=== PATIENT | female | born 1960 | race Asian ===

== ENCOUNTER 2024-11-23 11:05 | Emergency (ER) | payer OTHER, SELFPAY ==
[2024-11-23 11:22] VITALS: BP 163/86
[2024-11-23 11:42] LABS: Hematocrit 45.0 % (37.0-47.0); Hemoglobin 14.8 g/dL (12.0-16.0); Mean Corp Hgb Conc. 32.9 g/dL (33.0-37.0); Mean Corpuscular Volume 94.1 fL (81.0-99.0); Nucleated Red Blood Cells % 0 %; Platelet Count 316 10^3/uL (130-400); Red Cell Dist. Width 12.1 % (11.5-14.5)
[2024-11-23 12:07] LABS: ALT (SGPT) 45 U/L (0-35); AST (SGOT) 34 U/L (14-36); Albumin 4.6 g/dl (3.5-5.0); Alkaline Phosphatase 59 U/L (38-126); Blood Urea Nitrogen 16 mg/dl (7-17); Calcium 9.4 mg/dl (8.4-10.2); Carbon Dioxide 30 mmol/L (22-30); Chloride 106 mmol/L (98-107); Glucose 142 mg/dl (70-99); Potassium 4.2 mmol/L (3.5-5.1); Sodium 141 mmol/L (135-145); Total Protein 7.6 g/dl (6.3-8.2); eGFR > 60.00
[2024-11-23 12:16] LABS: Troponin I < 0.012 ng/ml
--- NOTE | 2024-11-23 15:00 | ED.GENMED ---
History of Present Illness
General
Chief Complaint: Cardiac Symptoms
Source: patient
Exam Limitations: none
Time Seen by Provider: 11/23/24 14:44
History of Present Illness
History of Present Illness:
64-year-old female with history of hyperlipidemia and diabetes presents complaining of chest pain onset last evening. The pain was to the lower left chest wall. There was no nausea or diaphoresis. No vomiting. The pain has since resolved. She
saw her family doctor today who did an EKG and said come to the emergency room. Currently she has no pain. No recent travel or surgery. No leg swelling or calf pain. She does not smoke. No other complaints at this time
Past History
Past History
ED Past Medical History: Other (endometriosis)
ED Past Surgical History: Gynecological (Endometriosis)
Social History
Tobacco: Non-smoker
Alcohol: Occasional
Personal:
Living: with family
Phy Exam
Physical Exam
Physical Exam:
General: Well-appearing female no acute respiratory distress
HEENT: Normocephalic atraumatic
Heart: Regular rate and rhythm
Lungs: Clear no wheeze abdomen is soft nontender nondistended extremities: No cyanosis or edema
Skin: Warm no rash
Course
Orders/Labs/Results
Orders:
Orders
11/23/24 11:07
ECG [Electrocardiogram (*1)] Urgent
Reason for Study: Chest Pain
EKG- Treatment ONCE
11/23/24 11:24
Chest [CR Chest - 2 Views ] Urgent
Comment:
Reason For Exam: chest pain
11/23/24 11:29
Complete Blood Count/With Diff Urgent
Comprehensive Metabolic Panel Urgent
Lipase Urgent
Comment: ADD ON
Troponin I Urgent
11/23/24 14:58
EKG [Electrocardiogram (*1)] Urgent
Reason for Study: Tachycardia
EKG- Treatment ONCE
11/23/24 15:03
Troponin I Urgent
11/23/24 15:04
Add On- LAB Urgent
Tests Added?: lipase
Abnormal Lab Results
11/23/24
11:29
MCHC 32.9 L g/dL
(33.0-37.0)
Glucose 142 H mg/dl
(70-99)
ALT 45 H U/L
(0-35)
11/23/24 11:29
11/23/24 11:29
Vital Signs
Initial and Last Documented VS:
Initial Vital Signs
Temp Pulse Resp BP Pulse Ox
98.4 F 81 18 163/86 99
11/23/24 11:22 11/23/24 11:22 11/23/24 11:22 11/23/24 11:22 11/23/24 11:22
Last Documented Vital Signs
Temp Pulse Resp BP Pulse Ox
98.4 F 79 11 149/75 99
11/23/24 11:22 11/23/24 15:30 11/23/24 15:30 11/23/24 15:07 11/23/24 15:30
MDM/Problems Addressed
Differential Diagnosis Includes:
Chest pain. Consider ACS versus pneumonia versus reflux. Symptoms have since resolved. Do not suspect dissection or PE.
EKG shows sinus rhythm with right bundle branch block without ischemic changes otherwise. Initial troponin undetectable. Repeat troponin is pending. Chest x-ray is clear.
*Pulse Oximetry
SaO2: 99
Oxygen Mode of Delivery: Room air
Patient hypoxic: no
*Critical Care Note
Total Time (30-74mins, 75-104mins- exclusive of procedures): Not Applicable
Update Note
Update Note:
Initial and repeat troponin both undetectable. Lipase normal. Patient still asymptomatic. Atypical chest discomfort. No signs of ACS PE or dissection on today's workup. Will discharge home with follow
ED Attending Note
-
Portions of this chart may have been created with voice recognition software.� Occasional wrong word or��sound alike� substitutions may have occurred due to the inherent limitations of voice recognition software.
Discharge Plan
Departure
Patient Disposition: Home (Routine Discharge)
Date of Disposition: 11/23/24
Time of Disposition: 16:01
Patient with high blood pressure during this ER visit?: No
Discharge Problem:
Chest pain
Instructions: Chest Pain CBC Follow Up
Prescriptions:
No Action
ginkgo biloba 40 MG capsule
40 mg PO DAILY
red yeast rice 600 MG capsule
600 mg PO DAILY
cholecalciferol (vitamin D3) 1,000 UNITS tablet
1,000 units PO DAILY
ibuprofen-diphenhydramine cit [Advil PM] 1 TAB tablet
1 tab PO HSPRN PRN (Reason: sleep)
omega 5-jte-ver-fish oil [Sigurd-3] 1 EACH capsule,delayed release(DR/EC)
1 ea PO DAILY
Natural Care Ring Stop
1 tab PO DAILY
Sucontral D
1 tab PO DAILY
Activity Restrictions/Additional Instructions:
Please return here for any worsening symptoms otherwise follow-up with your doctor or cardiology
Interventions
Interventions:
*Risk Screen - Suicide Last Done: 11/23/24 11:22
*General Assessment Last Done: 11/23/24 11:22
*Neglect/Abuse Screening Last Done: 11/23/24 11:22
*ED- Fall Risk Assessment Last Done: 11/23/24 15:42
*ED COVID-19 Vaccine History Last Done: 11/23/24 15:42
ED- Pulmonary Assessment Last Done: 11/23/24 15:43
ED- Cardiac Assessment Last Done: 11/23/24 15:43
Discharge Date and Time
Print Language: YORUBA
[2024-11-23 15:07] VITALS: BP 149/75
[2024-11-23 15:36] LABS: Troponin I < 0.012 ng/ml
[2024-11-23 15:42] VITALS: BMI 24.7
[2024-11-23 15:42] LABS: Lipase 132 U/L (23-300)
== END 2024-11-23 16:18 | disposition home or self-care (01) ==
LOC: EMR 11:05
PROVIDERS: Physician Assistant; Student in an Organized Health Care Education/Training Program; EMERGENCY PHYSICIAN Student in an Organized Health Care Education/Training Program; FAMILY PHYSICIAN Family Medicine
DX: R07.89 Other chest pain (principal); E78.00 Pure hypercholesterolemia, unspecified; E11.9 Type 2 diabetes mellitus without complications
CPT/HCPCS: 99283; 71046; 80053; 83690; 84484; 85025; 93005